=== PATIENT | female | born 1985 | race Caucasian/White ===

== ENCOUNTER 2017-07-22 09:57 | Inpatient (IN) | payer MEDICAID ==
[~2017-07-22] VITALS: Ht 160 cm; Wt 70.5 kg
[2017-07-22 10:38] VITALS: Ht 160 cm; Wt 70.5 kg
[2017-07-22 10:42] VITALS: BP 123/76; PULSE 83
[2017-07-22] MEDS ORDERED: OXYTOCIN 30 UNITS/LR 500 ML IV PRN ×3 (11:00→22:00)
[2017-07-22] MEDS ORDERED: OXYTOCIN 30 UNITS/LR 500 ML IV SCH ×2 (11:00→22:00)
[2017-07-22] MEDS ORDERED: MISOPROSTOL 200 MCG TAB PR PRN ×3 (11:00→22:00)
[2017-07-22] MEDS ORDERED: CARBOPROST 250 MCG INJ IM PRN ×3 (11:00→22:00)
[2017-07-22] MEDS ORDERED: CEFAZOLIN 2 GM/50 ML (PMX) 50 ML IV SCH ×2 (11:00→22:00)
[2017-07-22] MEDS ORDERED: METHYLERGONOVINE 0.2 MG INJ IM PRN ×3 (11:00→22:00)
[2017-07-22] MEDS: LACTATED RINGER'S 1,000 ML IV SCH ×3 (11:09→21:36)
[2017-07-22 11:41] LABS: BASOPHILS % 0.4 % (0.0-2.0); EOSINOPHILS # 0.1 10^3/ul (0.0-0.5); EOSINOPHILS % 0.7 % (0.0-7.0); HEMATOCRIT 43.2 % (37.0-47.0); HEMOGLOBIN 14.4 g/dl (12.0-16.0); LYMPHOCYTES # 1.5 10^3/ul (0.8-2.9); LYMPHOCYTES % 17.3 % (15.0-51.0); MEAN CORPUSCULAR HEMOGLOBIN 30.6 pg (29.0-33.0); MEAN CORPUSCULAR HGB CONC 33.3 g/dl (32.0-37.0); MEAN CORPUSCULAR VOLUME 91.9 fl (82.0-101.0); MEAN PLATELET VOLUME 12.6 fl (7.4-10.4); MONOCYTE # 0.6 10^3/ul (0.3-0.9); MONOCYTES % 6.9 % (0.0-11.0); NEUTROPHIL # 6.3 10^3/ul (1.6-7.5); NUCLEATED RED BLOOD CELLS% 0.2 /100WBC (0.0-0.0); PLATELET COUNT 167 10^3/UL (140-415); RED CELL DISTRIBUTION WIDTH 13.9 % (11.5-14.5); WHITE BLOOD COUNT 8.5 10^3/ul (4.8-10.8)
[2017-07-22 12:17] LABS: INR 0.92; PROTIME 12.4 Sec (12.2-14.2)
[2017-07-22 12:18] LABS: PARTIAL THROMBOPLASTIN TIME 29.6 Sec (25.0-35.0)
[2017-07-22] MEDS ORDERED: LACTATED RINGER'S 1,000 ML IV ONE ×2 (14:11→21:36)
[2017-07-22] MEDS ORDERED: CITRIC ACID/SODIUM CITRATE 15 ML CUP PO ONE (14:30)
[2017-07-22] MEDS ORDERED: FAMOTIDINE 20 MG INJ IV ONE ×2 (14:30→22:00)
[2017-07-22] MEDS ORDERED: METOCLOPRAMIDE 10 MG INJ IV ONE ×2 (14:30→22:00)
[2017-07-22] MEDS ORDERED: PNV11TAB PO (15:29)
--- NOTE | 2017-07-22 16:03 | RADRPT ---
PROCEDURE: US OB. CLINICAL INDICATION: Labor TECHNIQUE: Multiple sonographic images of the pelvis were obtained. The images were reviewed on a PACS workstation. COMPARISON: No prior studies are available for comparison. FINDINGS: There is a twin viable intrauterine gestation. Baby A: Cardiac activity is present with 142 beats per minute. There is a cephalic presentation. Measurements were made in order to determine age. The results are as follows: BPD =8.38 cm HC =30.32 cm AC =20.95 cm FL =6. 82 cm. Estimated gestational age of approximately 36-pofr-8-day The estimated date of delivery is 09/03/2017. The EFW = 2260 g 9% . The placenta is anterior grade 1. There is no evidence for an abruption There is a normal amount of amniotic fluid Baby B : Cardiac activity is present with 169 beats per minute. There is a cephalic presentation. Measurements were made in order to determine age. The results are as follows: BPD =8.96 cm HC =31.28 cm AC =32.17 cm FL =6.75 cm. Estimated gestational age of approximately 35 weeks 4 days. The estimated date of delivery is 08/22/2017. The EFW = 2729 g 51% . The placenta is anterior grade 1. There is no evidence for an abruption . There is a normal amount of amniotic fluid IMPRESSION: Twin live intrauterine Baby A: gestation of approximately 33 weeks 6 days. The estimated date of delivery is 09/03/2017 Baby B: Gestation of approximately 35 weeks 4 days. Estimated date of delivery is 08/22/2017 Note there is discrepancy between the size of the twins. Recommend clinical correlation. . .Perico Pena MD, Date Time Electronically viewed and signed by .Perico Pena MD, on 07/22/2017 16:03 .W/
[2017-07-22] MEDS ORDERED: FENTAnyl 50 MCG/ML VIAL ONE (18:01)
[2017-07-22] MEDS ORDERED: morphine SULFATE/PF (10 MG/10 ML) INJ ONE (18:01)
[2017-07-22] MEDS ORDERED: OXYTOCIN 30 UNITS/LR 500 ML IV ONE (18:02)
--- NOTE | 2017-07-22 18:07 | HP ---
Date/Time of Note Date/Time of Note DATE: 07/22/17 TIME: 18:03 OB - History Hx of Present Chief Complaint: SROM Estimated Due Date: Aug 22, 2017 : 3 Para: 1 Spontaneous : 1 Therapeutic : 0 Care: Good Care Ultrasounds: Normal mid trimester US Obstetrical Complications: Other (twins) Medical Complications: None Past Family/Social History * Past Medical, Surgical, Family and Obstetric Histories reviewed from chart. GBS Status: Negative OB Admission Exam Vital Signs Vital Signs Vital Signs Date Time Temp Pulse Resp B/P Pulse Ox O2 Delivery O2 Flow Rate FiO2 07/22/17 10:42 99.1 83 123/76 Physical Exam HEENT: WNL Heart: Rhythm Normal Lungs: Clear, Equal Abdomen: WNL Extremities: Normal Reflexes: Normal Cervical Dilatation: 1cm Effacement: 50% Station: -1 Membranes: Ruptured Amniotic Fluid: Clear Heart Rate: 130's Accelerations: Accelerations Present Decelerations: No Decelerations Varibility: Moderate Last 72 hours Lab Results CBC & BMP 07/22/17 11:09 OB Assessment/Plan Reason for admission: rupture of membranes, other (twins) Plan: Section TATE CASANOVA MD Jul 22, 2017 18:07
[2017-07-22] MEDS ORDERED: EPHEDrine SULFATE 50 MG/5 ML SYG ONE (18:21)
[2017-07-22] MEDS ORDERED: ONDANSETRON 4 MG INJ ONE (18:28)
--- NOTE | 2017-07-22 19:14 | OPPN ---
Date/Time of Note Date/Time of Note DATE: 07/22/17 TIME: 19:10 Operative Report Planned Procedure Procedure date Jul 22, 2017 Procedure(s) Primary c/s Performed by Tate Casanova MD Communications Tower Technician Dr Galindo Anesthesiologist: TIN PEDRAZA MD Pre-procedure diagnosis 35 weeks and 4 days, twins, SROM Anesthesia Type: spinal Post-Procedure Post-procedure diagnosis Same Findings Live Baby [], Apgars [] and [], weight [], position [], [] presentation []cord. Estimated Blood Loss: 600 - 700 mls (600 ml) Specimen(s) Placenta Grafts/Implant(s) none Complication(s) none TATE CASANOVA MD Jul 22, 2017 19:14
[2017-07-22] MEDS ORDERED: FENTAnyl 50 MCG/ML VIAL IV PRN (19:30)
[2017-07-22] MEDS ORDERED: KETOROLAC 30 MG INJ IV PRN (19:30)
[2017-07-22] MEDS ORDERED: PROCHLORPERAZINE 10 MG INJ IV PRN (19:30)
[2017-07-22] MEDS ORDERED: DIPHENHYDRAMINE 50 MG INJ IV PRN ×2 (19:30→20:00)
[2017-07-22] MEDS ORDERED: HYDROmorphONE (0.2 MG/ML) 10ML SYG IV PRN (19:30)
[2017-07-22] MEDS ORDERED: ONDANSETRON 4 MG INJ IV PRN ×2 (19:30→20:00)
[2017-07-22] MEDS ORDERED: MEPERIDINE 25 MG INJ IV PRN (19:30)
[2017-07-22] MEDS ORDERED: NALOXONE (0.4 MG/ML) INJ IV PRN (20:00)
[2017-07-22] MEDS ORDERED: ZOLPIDEM 5 MG TAB PO PRN (20:00)
[2017-07-22] MEDS ORDERED: HYDROmorphONE 0.5 MG/0.5 ML SYG IV PRN ×2 (20:00)
[2017-07-22] MEDS ORDERED: LACTATED RINGER'S 1,000 ML IV SCH (21:36)
--- NOTE | 2017-07-22 21:51 | OPR ---
DATE OF OPERATION: 07/22/2017 PREOPERATIVE DIAGNOSIS: at 35 weeks and 4 days with twins, spontaneous rupture of membran es. POSTOPERATIVE DIAGNOSIS: at 35 weeks and 4 days with twins, spontaneous rupture of membra cheryl. OPERATION PERFORMED: Primary low transverse section. SURGEON: Tate Schuster MD AGRICULTURAL RESEARCH TECHNICIAN: Dr. Galindo. ANESTHESIA: Spinal. ANESTHESIOLOGIST: Dr. Gardner. PROCEDURE: The patient was taken to the operating room and placed on the operating table. After hardy ccessful spinal anesthesia was given, the patient was placed in supine position. The area was prepa red and draped in the usual sterile fashion. Spinal anesthesia was tested and was satisfactory. Us ing a scalpel, Pfannenstiel incision was made about 2 fingerbreadths above the symphysis pubis. The incision was carried to the fascia. The fascia was incised and extended bilaterally with Randhawa scis sors. Two Kochers were used to separate the fascia from the muscle. The muscle was dissected down to peritoneum. The peritoneum was bluntly entered. Using a scalpel, a small transverse incision wa s made in the lower segment of the uterus. Upon entering the uterine cavity, bandage scissors was i nserted to extend the incision bilaterally, curved up. Twin A baby girl was delivered from cephalic presentation. After suctioning clear of amniotic fluid, the baby was handed off to the te am in attendance. Apgars were 9 and 9. Twin B baby girl was delivered from cephalic presentation. After suctioning clear of amniotic fluid, the baby was handed off to the team in attendanc e. Apgars were 7 and 8. The placenta was delivered without difficulty. The uterus was closed with #1 Monocryl continuous locked. After assuring hemostasis, both ovaries and tubes were inspected, a ll looked normal. The peritoneum was closed with 2-0 Vicryl continuous. The fascia was closed with #1 Vicryl continuous in 2 segments. The subcutaneous tissue was reapproximated with 2-0 plain. Th e skin was closed with mart. ESTIMATED BLOOD LOSS: 600 mL. COUNTS: All counts were correct. Dictated By: TATE SCHUSTER MD GD/NTS Conf#: [id number] DID#: [id number] CC: TATE SCHUSTER MD; SARAH GALINDO MD;*EndCC*
[2017-07-22] MEDS ORDERED: LANOLIN 7 GM TUBE TOP PRN (22:00)
[2017-07-22] MEDS: IBUPROFEN 800 MG TAB PO SCH (22:00)
[2017-07-22 22:30] VITALS: BP 114/73; PULSE 72; RESP 18
[2017-07-22 23:45] VITALS: BP 117/73; PULSE 68; RESP 18
[2017-07-23] MEDS: KETOROLAC 30 MG INJ IV PRN ×2 (03:41→14:11)
[2017-07-23] MEDS: OXYTOCIN 30 UNITS/LR 500 ML IV SCH ×2 (03:41→08:10)
[2017-07-23 04:00] VITALS: BP 130/86; PULSE 57; RESP 18
[2017-07-23] MEDS: IBUPROFEN 800 MG TAB PO SCH ×3 (07:25→21:32)
[2017-07-23 08:00] VITALS: BP 128/75; PULSE 61; RESP 20
[2017-07-23] MEDS: LACTATED RINGER'S 1,000 ML IV SCH ×3 (08:10→21:36)
[2017-07-23] MEDS: SENNA/DOCUSATE NA (8.6MG/50MG) TAB PO SCH ×2 (09:06→20:57)
--- NOTE | 2017-07-23 10:48 | QN ---
Documentation Comment No complaint Afebrile VSS Abdomen soft ND POD #1 Stable Ambulate Advance diet. TATE CASANOVA MD Jul 23, 2017 10:48
[2017-07-23 12:04] VITALS: BP 119/74; PULSE 63; RESP 18
[2017-07-23 12:25] LABS: BASOPHILS % 0.3 % (0.0-2.0); EOSINOPHILS # 0.1 10^3/ul (0.0-0.5); EOSINOPHILS % 0.4 % (0.0-7.0); HEMATOCRIT 37.8 % (37.0-47.0); HEMOGLOBIN 12.6 g/dl (12.0-16.0); LYMPHOCYTES # 1.6 10^3/ul (0.8-2.9); LYMPHOCYTES % 13.4 % (15.0-51.0); MEAN CORPUSCULAR HEMOGLOBIN 30.9 pg (29.0-33.0); MEAN CORPUSCULAR HGB CONC 33.3 g/dl (32.0-37.0); MEAN CORPUSCULAR VOLUME 92.6 fl (82.0-101.0); MEAN PLATELET VOLUME 12.8 fl (7.4-10.4); MONOCYTE # 0.8 10^3/ul (0.3-0.9); MONOCYTES % 6.6 % (0.0-11.0); NEUTROPHIL # 9.1 10^3/ul (1.6-7.5); NEUTROPHILS % 78.9 % (39.0-77.0); PLATELET COUNT 153 10^3/UL (140-415); RED BLOOD COUNT 4.08 10^6/ul (4.20-5.40); RED CELL DISTRIBUTION WIDTH 13.7 % (11.5-14.5); WHITE BLOOD COUNT 11.6 10^3/ul (4.8-10.8)
--- NOTE | 2017-07-23 14:22 | NSTRPT ---
NST Information Datetime Report Generated by CPN: 07/23/2017 14:22 Datetime: 07/22/2017 09:01 NST Information EGA: 35.4 Test Number: 8 Time on Monitor: 07/22/2017 09:53 Time off Monitor: 07/22/2017 09:54 NST Duration (Min): 1 Reason for NST: Multiple Gestation; Other Reason for NST Other: Twins Test and Monitor Explained: Monitor Explained; Test Explained; Verbalized Understanding Pulse: 75 Resp: 17 SBP: 130 DBP: 81 Test Evaluation Patient States Movement: Present Provider Notified: Dr Schuster - [id number] Comments: To u/s: Twin A-cephalic left, MVP 4.7cm Twin B-cephalic right, MVP 3.6cm Comments: To u/s: Twin A-cephalic left, MVP 4.7cm, FHT 135 Twin B-cephalic right, MVP 3.6cm, FHT 130 Pt c/o SROM at 0950, FHT audible for both baby A and baby B. Pt to Labor and Delivery. Electronically Signed By E-Signature: with User ID: [id number] Datetime: 07/17/2017 08:10 NST Information EGA: 34.6 NST Duration (Min): 33 Datetime: 07/15/2017 08:10 NST Information EGA: 34.4 NST Duration (Min): 43 Datetime: 07/11/2017 08:50 NST Information EGA: 34.0 NST Duration (Min): 47 Datetime: 07/08/2017 08:49 NST Information EGA: 33.4 NST Duration (Min): 58 Datetime: 07/04/2017 10:21 NST Information EGA: 33.0 NST Duration (Min): 29 Datetime: 07/01/2017 08:57 NST Information EGA: 32.4 NST Duration (Min): 35 Datetime: 06/27/2017 08:29 NST Information EGA: 32.0 Datetime: 06/27/2017 08:15 NST Duration (Min): 37
[2017-07-23 15:52] VITALS: BP 122/70; PULSE 58; RESP 19
[2017-07-23] MEDS: OXYCODONE/ACETAMINOPHEN (5/325) TAB PO PRN (18:45)
[2017-07-23 19:20] VITALS: BP 116/68; PULSE 67; RESP 21
[2017-07-24] MEDS: OXYCODONE/ACETAMINOPHEN (5/325) TAB PO PRN ×4 (00:12→20:11)
[2017-07-24] MEDS: IBUPROFEN 800 MG TAB PO SCH ×3 (05:32→23:27)
[2017-07-24] MEDS: LACTATED RINGER'S 1,000 ML IV SCH (05:36)
[2017-07-24] MEDS: SENNA/DOCUSATE NA (8.6MG/50MG) TAB PO SCH ×2 (08:39→21:00)
[2017-07-24 08:40] VITALS: BP 110/72; PULSE 75; RESP 19
--- NOTE | 2017-07-24 15:58 | DS ---
Date/Time of Note Date/Time of Note DATE: 07/24/17 TIME: 15:56 Obstetrical Discharge Record Final Diagnosis Final Diagnosis: delivered Other Final Diagnosis twin Section Section: Primary Primary Indication twins Complications Multiple Gestation Rupture of Membranes: Yes Gestational Age at Rupture 35 weeks Condition on Discharge Physical Assessment Voiding: Yes Bowel Movement: Yes Breast: Soft, non-tender, Filling Fundus: Firm Abdomen and Incision: Incision intact Calf Tenderness: No Patient Condition: Stable TATE CASANOVA MD Jul 24, 2017 15:58
[2017-07-24 16:00] VITALS: BP 97/71; PULSE 101; RESP 20
[2017-07-24] MEDS ORDERED: MAGNESIUM HYDROXIDE 30ML CUP PO ONE (16:00)
[2017-07-24] MEDS ORDERED: INFLUENZA VIRUS VACCINE 0.5 ML (DISPENSING) IM* ONE (19:30)
[2017-07-24 20:00] VITALS: BP 121/76; PULSE 61; RESP 18
[2017-07-25 05:00] VITALS: BP 134/67; PULSE 57; RESP 19
[2017-07-25] MEDS: IBUPROFEN 800 MG TAB PO SCH (06:27)
[2017-07-25 09:00] VITALS: BP 108/73; PULSE 80; RESP 18
[2017-07-25] MEDS ORDERED: DIPHTH/TET/ACEL PERTUSS (ADULT) 0.5 ML VIAL IM* ONE (09:00)
[2017-07-25] MEDS: SENNA/DOCUSATE NA (8.6MG/50MG) TAB PO SCH (09:06)
[2017-07-25] MEDS: OXYCODONE/ACETAMINOPHEN (5/325) TAB PO PRN (12:18)
== END 2017-07-25 13:20 | disposition home or self-care (01) | DRG 765 ==
LOC: L-D 09:57 → PP1 22:33
PROVIDERS: ADMIT Obstetrics & Gynecology; ATTEND Obstetrics & Gynecology
PROC: 3E033VJ Introduction of Other Hormone into Peripheral Vein, Percutaneous Approach (ICD-10-PCS; 2017-07-22)
PROC: 10D00Z1 Extraction of Products of Conception, Low, Open Approach (ICD-10-PCS; principal; 2017-07-22 18:30)
DX: O60.14X2 Preterm labor third trimester with preterm delivery third trimester, fetus 2 (principal); O30.003 Twin pregnancy, unspecified number of placenta and unspecified number of amniotic sacs, third trimester; Z3A.36 36 weeks gestation of pregnancy; Z37.2 Twins, both liveborn
CPT/HCPCS: 76815; 85025; 85610; 85730; 86592; 86850; 86900; 86901; 87340; 88307; 90686; 90715; 94760; 99464; J0690; J1885; J2274; J2405; J2590; J2765; J3010; J7120

== ENCOUNTER 2018-06-09 08:55 | Day surgery (SDC) | END 2018-06-09 15:12 | disposition home or self-care (01) ==